=== PATIENT | male | born 1960 | race Caucasian/White ===

== ENCOUNTER 2022-08-03 10:18 | Emergency (ER) | payer OTHER, SELFPAY ==
[2022-08-03 10:29] VITALS: BP 116/83; PULSE 94; RESP 16; TEMP 36.6; O2SAT 99
--- NOTE | 2022-08-03 10:59 | ED.URI ---
HPI - URI/Sore Throat General Chief Complaint: Upper Respiratory Infection Stated Complaint: sinus drainage, fatigue, cough Time Seen by Provider: 08/03/22 10:58 Source: patient, RN notes reviewed and old records reviewed Mode of arrival: ambulatory Limitations: no limitations History of Present Illness HPI Narrative: a 62-year-old male who presents to [facility] with complaints of 2 week duration of sinus pressure, drainage,cough. He reports symptoms starting he stated after having a new CPAP initially was cold symptoms with a little bit of a cough and sneezing. He reports his symptoms progressed to headaches sinus pressure yellow greenish sinus drainage and also cough with expectoration of yellow green phlegm. Patient states he has a history of sinusitis and also seasonal allergies then progressed to present symptoms. Onset (ago): week(s) (2) Treatments prior to arrival: ibuprofen and other (Sudafed) Related Data Allergies Allergy/AdvReac Type Severity Reaction Status Date / Time No Known Allergies Allergy Verified 08/03/22 10:49 Review of Systems Review of Systems: CONSTITUTIONAL: Denies fever, chills, or sweats. EYES: Denies visual changes, redness, or discharge. ENT: Reports rhinorrhea, congestion,no sore throat, or otalgia. CARDIOVASCULAR: Denies chest pain, palpitations, or edema. RESPIRATORY:Reports cough no dyspnea. GASTROINTESTINAL: Denies abdominal pain, nausea, vomiting, or diarrhea. GENITOURINARY: Denies dysuria or hematuria. SKIN: Denies rash or itching. MUSCULOSKELETAL: Denies back pain, joint pain, or myalgia. NEUROLOGIC: Reports frontal headache,no numbness, or weakness. PSYCHIATRIC: Denies anxiety or depression. All systems reviewed & are unremarkable except as noted in HPI and below PMFSH Past Medical History Medical History (Updated 08/08/22 @ 08:55 by Brook Yanes NP) Arthritis BPH (benign prostatic hyperplasia) History of sinus problem Migraine EYAL on CPAP Pneumonia Surgical History Surgical History (Updated 08/08/22 @ 08:52 by Brook Yanes NP) H/O vasectomy Family History Family History Grandparent Family history of Alzheimer's disease Father Family history of lung cancer Other Carcinoma of colon Social History Social History (Reviewed 08/08/22 @ 08:51 by TAZ Kapadia Smoking status: Never smoker Alcohol intake: never Substance use: never Substance use type: does not use Additional occupation/education comments: Banker Gender identity (if verbalized by the patient): Male Agree to blood products: Yes Comments At time of signature, agree with nursing past medical, surgical, social and family history. There is no relevant family history pertinent to the presenting complaint Exam Narrative: GENERAL: Well-appearing, well-nourished, and in no acute distress. HEAD: Normocephalic, atraumatic. EYES: PERRLA and EOMI. ENT: Nares red and edematous, clear to light yellow rhinorrhea, no epistaxis. Mucous membranes moist.TM's normal with dull light reflex, throat pink with no lesions or swelling, post nasal discharge noted NECK: Supple.no lymphadenopathy CHEST: Clear to auscultation. No respiratory distress.SAO2 99% on room air HEART: Regular rate and rhythm. No murmur heard. Normal peripheral pulses. ABDOMEN: Soft, nontender, nondistended, normal active bowel sounds. EXTREMITIES: Normal range of motion. No edema. SKIN: Warm, dry, no rash. NEURO: No focal deficits. Alert and oriented x3. Course Course Emergency Course: Patient is aware of diagnosis, understands and agrees to treatment plan.? Anticipatory guidance given.? Patient agrees to follow-up as directed and is aware of reasons to seek care at the emergency department. Portions of this record may have been created with voice recognition software Level of Care: Express Care Visit Vital Signs Vital signs: Vital Signs Temperature 36.
== END 2022-08-03 11:26 | disposition home or self-care (01) ==
PROVIDERS: Emergency Provider Registered Nurse; PCP Family Medicine
DX: J32.9 Chronic sinusitis, unspecified (principal)
CPT/HCPCS: 99213; G0463

== ENCOUNTER 2025-03-11 09:15 | Emergency (ER) | payer OTHER, SELFPAY ==
--- NOTE | 2025-03-11 09:19 | ED.WOUNDLAC ---
HPI - Wound/Laceration General Chief Complaint: Skin/Abscess/Foreign Body Stated Complaint: Hook in R Ear Time Seen by Provider: 03/11/25 09:17 Patient presents to the [facility] with complaints a fishhook stuck it right ear. Patient noted this happened just prior to arrival at [facility]. Patient noted no fish had been on this suck had just placed this to get ready to start fishing. Denies any attempts to get this out on his own. Patient up-to-date on tetanus vaccination. Related Data Allergies Allergy/AdvReac Type Severity Reaction Status Date / Time No Known Allergies Allergy Verified 03/11/25 09:18 Review of Systems Constitutional: Constitutional: Reports as per HPI Eyes: Eyes: Reports no additional eye complaints ENT: Reports as per HPI Comments: fish hook in right ear Cardiovascular: Cardiovascular: Reports no additional cardiovascular complaints Respiratory: Respiratory: Reports no additional respiratory complaints Gastrointestinal: Gastrointestinal: Reports no additional gastrointestinal complaints Genitourinary: Genitourinary: Reports no additional male genitourinary complaints Musculoskeletal: Musculoskeletal: Reports as per HPI Integumentary/Breasts: Skin/Breast: Reports as per HPI, Denies breast mass, Denies pruritus, Denies erythema and Denies rash Comments: fish hook right ear Neurologic: Reports as per HPI, Denies syncope, Denies headache(s), Denies numbness and Denies weakness Psychiatric: Psychiatric: Reports no additional psychiatric complaints Endocrine: Endocrine: Reports no additional endocrine complaints Hematologic/Lymphatic: Hematologic/Lymphatic: Reports no additional hematologic/lymphatic complaints Allergic/Immunologic: Allergic/Immunologic: Reports no additional allergic/immunologic complaints [facility] Past Medical History Medical History Arthritis BPH (benign prostatic hyperplasia) History of sinus problem Migraine EYAL on CPAP Pneumonia Surgical History Surgical History H/O vasectomy Family History Family History Grandparent Family history of Alzheimer's disease Father Family history of lung cancer Other Carcinoma of colon Social History Social History Smoking status: Never smoker Alcohol intake: never Substance use: never Substance use type: does not use Lack of Transportation: No Lack of Food: Never True Current Housing: I Have Housing Concerned About Future Housing: No Difficulty Paying Gas/Electric Bills: No Difficulty Paying for Meds: No Currently Unemployed: No Education: Master's Degree or Higher Living arrangements: with family Occupation/Education: occupation Additional occupation/education comments: Banker Gender identity (if verbalized by the patient): Male Agree to blood products: Yes Exam Const: General: healthy appearing and no acute distress Nutritional Appearance: well nourished Orientation/consciousness: patient oriented x3 Limitations: no limitations HENMT: Head: abnormal to inspection Ears: external ears abnormal (fish hook in pinna of right ear ) Neck: Neck: no lymphadenopathy Resp: Effort & Inspection: normal respiratory effort Auscultation: clear to auscultation bilaterally Cardio: Rate: regular rate Skin: General skin exam: normal color Rashes: no rashes Wounds: wounds noted Other: fish hook in right ear-pinna Neuro: General: patient oriented x3 Speech: normal speech Gait exam (Neuro): Normal gait present Psych: Mental Status: mental status grossly normal Affect: normal affect Attitude: cooperative Course Course Level of Care: Express Care Visit Procedures Foreign Body Removal Foreign Body #1: Foreign Body Removal Date: 03/11/25 Foreign Body Removal Time: 09:41 Time Out Performed: no Site: right Description of foreign body: fish hook Sedation/Analgesia: other (1%lidocaine without epi ) Technique: other (manual removal with second puncture to remove michael. ) Confirmed by:: direct visualization Complications: none Post-procedure exam: awake, alert Neurovascular: no signs of compartment syndrome Foreign Body Removal Narrative: Successfully remove fishhook from area and no bleeding after removal. Bacitracin applied. MDM - Wound/Laceration MDM Narrative Medical decision making narrative: fishhook successfully removed in clinic Discharge instructions reviewed with patient, as well as provided in writing per nursing staff. The instructions also include specific and strict return/GO TO THE ER as well as f/u information. All questions have been answered, and the patient deny any further questions with discharge and discharge plan. Differential Diagnosis Differential diagnosis: Likely laceration, abscess, abrasion and avulsion of skin Discharge Plan Discharge Clinical Impression: Foreign body in skin of right ear Patient Disposition: Home Condition: Stable Instructions: Antibiotic Form, Soft Tissue Foreign Body (ED), Puncture Wound (ED) Additional Instructions: We have removed the fish hook from your ear. There are 2 small puncture wounds noted. Keep these clean and dry apply Neosporin/ bacitracin/ Aquaphor if needed. If you began to notice redness, pain, swelling to the area start taking the antibiotics and take these until gone. Patient Language: Korean Prescriptions: New ciprofloxacin HCl [Cipro] 500 mg tablet 500 mg PO Q12H Qty: 14 0RF Follow-up/Referrals: Dayday,Sydnie Hooper MD [Primary Care Provider] - Time of Disposition: 09:44
[2025-03-11 09:24] VITALS: BP 122/84; PULSE 75; RESP 16; TEMP 35.8; O2SAT 98
== END 2025-03-11 09:50 | disposition home or self-care (01) ==
PROVIDERS: Emergency Provider Nurse Practitioner Family; PCP Student in an Organized Health Care Education/Training Program
DX: S01.341A Puncture wound with foreign body of right ear, initial encounter (principal); W45.8XXA Other foreign body or object entering through skin, initial encounter
CPT/HCPCS: 99213; G0463; J2003